=== PATIENT | female | born 1960 | race Caucasian/White ===

== ENCOUNTER 2021-09-02 17:29 | Emergency (ER) | payer BC, SELFPAY ==
[2021-09-02 18:08] LABS: #Basophils 0.1 thou/uL (0.0-0.2); #Eosinphils 0.1 thou/uL (0.0-0.7); #Lymphocytes 1.8 thou/uL (1.20-3.40); #Monocytes 0.7 thou/uL (0.11-0.59); #Neutrophils 6.4 thou/uL (1.40-6.50); %Basophils 0.7 % (0.0-1.0); %Lymphocytes 19.6 % (21.0-51.0); %Monocytes 7.3 % (0.0-10.0); %Neutrophils 71.4 % (42.0-75.0); Hemoglobin 13.6 g/dL (12.0-16.0); Mean Corpuscular HGB CONC 32.9 g/dL (32.0-36.0); Mean Corpuscular Hemoglobin 29.6 pg (27.0-31.0); Mean Platelet Volume 8.5 fL (7.4-10.4); Platelet Count 268 thou/uL (130-400); RBC Distribution Width 12.8 % (11.5-14.5); White Blood Cell (WBC) Count 8.9 thou/uL (4.8-10.8)
[2021-09-02] MEDS ORDERED: Labetalol HCl 100 MG/20 ML VIAL ONE (18:21)
[2021-09-02 18:27] LABS: ALT (SGPT) 21 U/L (8-55); AST (SGOT) 22 U/L (5-34); Albumin 4.5 g/dL (3.5-5.0); Alkaline Phosphatase 64 U/L (40-110); Anion Gap 16 mmol/L (10-20); BUN (Urea Nitrogen) 14 mg/dL (9.8-20.1); Bilirubin, Total 0.5 mg/dL (0.2-1.2); Calc. Creatinine Clearance 0 mL/min (70-130); Carbon Dioxide 20 mmol/L (22-29); Chloride 103 mmol/L (98-107); Globulin 2.5 g/dL (2.4-3.5); Glucose 93 mg/dL (70-105); Potassium 3.5 mmol/L (3.5-5.1); Sodium 135 mmol/L (136-145)
[2021-09-02 18:43] LABS: Bilirubin Negative (Negative); Blood, Urine Negative (Negative); Clarity Clear (Clear); Glucose, Urine (Dipstick) Negative (Negative); Ketone, Urine Negative (Negative); Leukocyte Negative (Negative); Nitrite Negative (Negative); Protein, Urine (Dipstick) Negative (Neg-Trace); Specific Gravity, Urine 1.002 (1.002-1.036); Urobilinogen 0.2 mg/dL (Less than 2); pH, Urine 5.5 (5.0-9.0)
== END 2021-09-02 19:10 | disposition home or self-care (01) ==
LOC: BURERS 17:29
DX: I10 Essential (primary) hypertension (principal)
CPT/HCPCS: 71046; 80053; 81003; 83735; 83880; 84484; 85025; 93005; 94760; 96374

== ENCOUNTER 2022-06-29 15:44 | Emergency (ER) | payer BC ==
[2022-06-29] MEDS ORDERED: traMADol HCl 50 MG TAB ONE (16:58)
== END 2022-06-29 17:11 | disposition home or self-care (01) ==
LOC: BURERS 15:44
DX: S82.001A Unspecified fracture of right patella, initial encounter for closed fracture (principal); W17.89XA Other fall from one level to another, initial encounter

== ENCOUNTER 2023-07-20 12:57 | Emergency (ER) | payer BC | END 2023-07-20 13:16 | disposition home or self-care (01) | LOC: BURERS 12:57 | DX: J20.9 Acute bronchitis, unspecified (principal); F17.210 Nicotine dependence, cigarettes, uncomplicated | CPT/HCPCS: 99283 ==